=== PATIENT | male | born 1975 | race Caucasian/White ===

== ENCOUNTER 2017-01-29 05:44 | Emergency (ER) | payer OTHER ==
[2017-01-29 06:19] LABS: BILIRUBIN NEGATIVE (NEGATIVE); BLOOD TRACE-INTACT Ery/uL (NEGATIVE); CLARITY CLEAR (CLEAR); COLOR YELLOW (YELLOW); GLUCOSE (U) NORMAL (NORMAL); KETONE (U) NEGATIVE (NEGATIVE); LEUKOCYTES NEGATIVE Leu/uL (NEGATIVE); NITRITE NEGATIVE (NEGATIVE); PROTEIN NEGATIVE (NEGATIVE); SPECIFIC GRAVITY 1.015 (1.001-1.030); UROBILINOGEN 0.2 mg/dL (0.2-1.0)
[2017-01-29 06:29] LABS: BACTERIA TRACE; MUCOUS TRACE; URINARY RBC RARE; URINARY WBC RARE
== END 2017-01-29 06:50 | disposition home or self-care (01) ==
LOC: FER 05:44
PROVIDERS: Emergency Medicine
DX: K05.10 Chronic gingivitis, plaque induced (principal); K08.89 Other specified disorders of teeth and supporting structures; Z87.19 Personal history of other diseases of the digestive system
CPT/HCPCS: 81001; 99283